=== PATIENT | male | born 1990 | race Caucasian/White ===

== ENCOUNTER 2017-07-26 03:54 | Emergency (ER) | payer BC ==
[~2017-07-26] VITALS: Ht 177.8 cm; Wt 90.7 kg
[~2017-07-26 03:54] MED LIST: NORCO 5/3251 TABLET PO
[2017-07-26 05:00] LABS: HEMATOCRIT 40.4 % (38.0-50.0); HEMOGLOBIN 14.4 G/DL (12.5-16.6); MCH 31.7 PG (29.0-34.0); MCHC 35.6 G/DL (30.0-36.0); PLATELET COUNT 218 K/uL (156-360); RBC DIS.WIDTH-CV 11.3 % (11.8-14.6); RBC DIS.WIDTH-SD 36.2 % (39-53); RED BLOOD COUNT 4.54 M/uL (4.00-5.50); WHITE BLOOD COUNT 9.2 K/uL (4.1-10.2)
[2017-07-26 05:11] LABS: ALBUMIN 4.6 g/dL (3.2-4.8); CHLORIDE 105 mEq/L (99-109); POTASSIUM 3.6 mEq/L (3.7-5.4); SODIUM 140 mEq/L (136-147)
[2017-07-26 05:14] LABS: GLUCOSE 99 mg/dL (70-99); TOTAL PROTEIN 7.1 g/dL (6.4-8.3)
[2017-07-26 05:15] LABS: TOTAL BILIRUBIN 0.8 mg/dL (0.0-1.0)
[2017-07-26 05:16] LABS: SERUM ETHYL ALCOHOL < 10 mg/dL
[2017-07-26 05:17] LABS: ALKALINE PHOSPHATASE 69 IU/L (3-129); CREATININE 0.8 mg/dL (0.6-1.3); GFR ESTIMATE (CALCULATED) > 59 mL/min/ (58.99-99999)
[2017-07-26 05:18] LABS: UREA NITROGEN (BUN) 9 mg/dL (9-23)
[2017-07-26 05:19] LABS: AST (GOT) 22 IU/L (2-34)
[2017-07-26 05:20] LABS: ALT (GPT) 22 IU/L (3-49)
[2017-07-26] MEDS ORDERED: ATARAX,VISTARIL25 MG PO (06:00)
[2017-07-26 06:39] VITALS: BP 113/69
== END 2017-07-26 06:39 | disposition home or self-care (01) ==
LOC: EME 03:54
PROVIDERS: Emergency Medicine
DX: F41.9 Anxiety disorder, unspecified (principal); K21.9 Gastro-esophageal reflux disease without esophagitis
CPT/HCPCS: 80053; 81003; 85027; 90839; 99281; 99284; G0480